=== PATIENT | female | born 2000 | race African-American/Black ===

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

== ENCOUNTER 2019-03-24 09:24 | Emergency (ER) | payer OTHER ==
[~2019-03-24] VITALS: Ht 172.7 cm; Wt 72.7 kg
[2019-03-24 09:46] VITALS: BP 122/81; TEMP 98.1
[2019-03-24] MEDS ORDERED: TAMIFLU 75MG75 MG PO (10:41)
[2019-03-24 10:59] VITALS: PULSE 98
== END 2019-03-24 10:59 | disposition home or self-care (01) ==
LOC: COL.ER 09:24
DX: J11.1 Influenza due to unidentified influenza virus with other respiratory manifestations (principal)

== ENCOUNTER 2019-05-12 09:25 | Emergency (ER) | payer OTHER ==
[~2019-05-12] VITALS: Ht 172.7 cm; Wt 79.5 kg
[2019-05-12 09:29] VITALS: BP 134/82; PULSE 84; TEMP 97.9
[2019-05-12 10:15] LABS: COLLECTION METHOD CLEAN CATCH
[2019-05-12 10:28] LABS: MUCOUS Present /lpf; PH 5 (5-8); URINE APPEARANCE Hazy; URINE BACTERIA Rare /hpf; URINE BILIRUBIN Negative (NEGATIVE); URINE BLOOD Negative (NEGATIVE); URINE COLOR Amber; URINE GLUCOSE Negative (NEGATIVE); URINE KETONE Negative (NEGATIVE); URINE LEUKOCYTE ESTERASE Trace (NEGATIVE); URINE NITRATE Negative (NEGATIVE); URINE PROTEIN(semi-quant) 1+ (NEGATIVE); URINE RBC 0-2 /hpf; URINE UROBILINOGEN Negative (NEGATIVE)
== END 2019-05-12 12:11 | disposition home or self-care (01) ==
LOC: COL.ER 09:25
PROVIDERS: Physician Assistant
DX: R10.2 Pelvic and perineal pain (principal)
CPT/HCPCS: J1885

== ENCOUNTER 2019-05-14 21:22 | Emergency (ER) | payer OTHER ==
[~2019-05-14] VITALS: Ht 172.7 cm; Wt 79.5 kg
[2019-05-14 21:38] VITALS: BP 142/80; TEMP 97.3
[2019-05-15 01:23] LABS: COLLECTION METHOD CLEAN CATCH
[2019-05-15 01:26] LABS: BASO # 0.1 (0.0-0.2); BASO % 0.5 % (0.0-2.0); EOS # 0.2 (0.0-0.7); EOS % 1.5 % (0-4.0); GRAN # 7.5 (1.4-6.5); GRAN % 70.1 % (42.2-75.2); HEMATOCRIT 41.3 % (35.0-45.0); LYMPH # 2.4 (1.2-3.4); LYMPH % 22.5 % (20.0-51.0); MEAN CELL VOLUME 91 fl (80.0-95.0); MEAN CORPUSCULAR HEMOGLOBIN 29 pg (26.0-32.0); MEAN CORPUSCULAR HGB CONC 32 g/dl (33.0-37.0); MEAN PLATELET VOLUME 11.1 fl (7.4-10.4); MONO # 0.6 (0.1-0.6); MONO % 5.1 % (1.7-9.3); PLATELET COUNT 237 K/mm3 (130-400); RED BLOOD COUNT 4.52 M/mm3 (4.10-5.30); REDCELL DISTRIBUTION WIDTH-CV 13.8 % (11.5-14.5)
[2019-05-15 01:30] LABS: MUCOUS Present /lpf; PH 7 (5-8); URINE APPEARANCE Clear; URINE BACTERIA None Seen /hpf; URINE BILIRUBIN Negative (NEGATIVE); URINE BLOOD Negative (NEGATIVE); URINE COLOR Yellow; URINE GLUCOSE Negative (NEGATIVE); URINE KETONE Negative (NEGATIVE); URINE LEUKOCYTE ESTERASE Negative (NEGATIVE); URINE NITRATE Negative (NEGATIVE); URINE PROTEIN(semi-quant) Negative (NEGATIVE); URINE RBC 0-2 /hpf
[2019-05-15 01:35] LABS: ALBUMIN 4.1 gm/dL (3.5-5.0); BILIRUBIN,TOTAL 0.3 mg/dL (0.0-1.0); CALCIUM 8.6 mg/dL (8.4-10.2); CREATININE, serum 0.72 (0.52-1.25); POTASSIUM 3.8 mmol/L (3.4-5.0); TOTAL PROTEIN 7.5 gm/dL (6.4-8.2)
[2019-05-15] MEDS ORDERED: NORCO 325 MG-51 TAB PO (02:55)
[2019-05-15 03:32] VITALS: PULSE 64
== END 2019-05-15 03:32 | disposition home or self-care (01) ==
LOC: COL.ER 21:22
PROVIDERS: Emergency Medicine
DX: N83.201 Unspecified ovarian cyst, right side (principal)
CPT/HCPCS: J7030; Q9967

== ENCOUNTER 2019-07-25 10:35 | Emergency (ER) | payer OTHER ==
[~2019-07-25] VITALS: Ht 172.7 cm; Wt 77.3 kg
[~2019-07-25 10:35] MED LIST changes: +NORCO 325 MG-51 TAB PO
[2019-07-25 10:54] VITALS: BP 146/82; PULSE 83; TEMP 98.8
[2019-07-25] MEDS ORDERED: NEXPLANON68 MG ID (10:56)
[2019-07-25] MEDS ORDERED: AMOXICILLIN 8751 TAB PO ×4 (11:20→13:44)
[2019-07-25] MEDS ORDERED: NORCO 325 MG-51 TAB PO ×4 (11:20→13:44)
== END 2019-07-25 11:45 | disposition home or self-care (01) ==
LOC: COL.ER 10:35
DX: K04.7 Periapical abscess without sinus (principal)

== ENCOUNTER 2021-01-16 18:28 | Emergency (ER) | payer OTHER ==
[~2021-01-16] VITALS: Ht 172.7 cm; Wt 79.5 kg
[~2021-01-16 18:28] MED LIST changes: +AMOXICILLIN 8751 TAB PO; +NEXPLANON68 MG ID; +ZOFRAN 4MG T4 MG/TAB PO
[2021-01-16 19:40] LABS: BASO # 0.1 K/mm3 (0.0-0.2); BASO % 0.4 % (0.0-2.0); EOS # 0.1 K/mm3 (0.0-0.7); EOS % 0.4 % (0-4.0); GRAN % 78.7 % (42.2-75.2); HEMATOCRIT 38.8 % (37.0-47.0); HEMOGLOBIN 12.2 g/dl (12.5-16.0); LYMPH # 2.1 K/mm3 (1.2-3.4); LYMPH % 13.6 % (20.0-51.0); MEAN CELL VOLUME 88 fl (80.0-100.0); MEAN CORPUSCULAR HEMOGLOBIN 28 pg (27.0-31.0); MEAN CORPUSCULAR HGB CONC 31 g/dl (33.0-37.0); MONO % 6.5 % (1.7-9.3); PLATELET COUNT 261 K/mm3 (130-400); REDCELL DISTRIBUTION WIDTH-CV 14.4 % (11.5-14.5)
[2021-01-16 19:56] LABS: ALBUMIN 3.8 gm/dL (3.5-5.0); BILIRUBIN,TOTAL 0.3 mg/dL (0.2-1.2); C-REACTIVE PROTEIN 7.23 mg/dL (0.00-0.50); CALCIUM 8.7 mg/dL (8.4-10.2); CREATININE, serum 0.9 mg/dL (0.57-1.11); POTASSIUM 3.7 mmol/L (3.5-4.5); TOTAL PROTEIN 7.3 gm/dL (6.2-8.1)
[2021-01-16 21:26] LABS: GLUCOSE,CSF 55 mg/dL (40-70)
[2021-01-16 22:04] LABS: MONOSCREEN NEGATIVE
[2021-01-16 22:11] LABS: CSF APPEARANCE CLEAR; CSF COLOR COLORLESS
[2021-01-16 22:12] LABS: CSF APPEARANCE CLEAR; CSF COLOR COLORLESS; CSF MONONUCLEAR 100 % (70-100); CSF POLYMORPHONUCLEAR 0 % (0-6); CSF RBC 1 /mm3 (0-0); CSF RBC 14 /mm3 (0-0)
[2021-01-16] MEDS ORDERED: OMNICEF 300MG300 MG PO (22:42)
[2021-01-16 22:49] LABS: COLLECTION METHOD CLEAN CATCH
[2021-01-16 22:55] VITALS: BP 129/67; PULSE 74; TEMP 97.9
[2021-01-16 22:55] LABS: MUCOUS Present /lpf; PH 7 (5-8); SQUAMOUS EPITHELIAL 0-2 /hpf; URINE APPEARANCE Clear; URINE BACTERIA None Seen /hpf; URINE BILIRUBIN Negative (NEGATIVE); URINE BLOOD Negative (NEGATIVE); URINE COLOR Yellow; URINE GLUCOSE Negative (NEGATIVE); URINE KETONE 1+ (NEGATIVE); URINE LEUKOCYTE ESTERASE Negative (NEGATIVE); URINE NITRATE Negative (NEGATIVE); URINE PROTEIN(semi-quant) Negative (NEGATIVE); URINE RBC 0-2 /hpf; URINE UROBILINOGEN Negative (NEGATIVE)
== END 2021-01-16 22:55 | disposition home or self-care (01) ==
LOC: COL.ER 18:28
PROVIDERS: Family Medicine
DX: R50.9 Fever, unspecified (principal); M54.2 Cervicalgia; Z20.822 Contact with and (suspected) exposure to COVID-19
CPT/HCPCS: J7120

== ENCOUNTER 2021-01-20 15:08 | Emergency (ER) | payer OTHER ==
[~2021-01-20] VITALS: Ht 172.7 cm; Wt 81.8 kg
[~2021-01-20 15:08] MED LIST changes: +OMNICEF 300MG300 MG PO
[2021-01-20 15:43] VITALS: TEMP 98.3
[2021-01-20 17:13] LABS: BASO # 0.1 K/mm3 (0.0-0.2); BASO % 0.5 % (0.0-2.0); EOS # 0.1 K/mm3 (0.0-0.7); EOS % 0.5 % (0-4.0); GRAN # 6.7 K/mm3 (1.4-6.5); HEMATOCRIT 40.7 % (37.0-47.0); HEMOGLOBIN 13.2 g/dl (12.5-16.0); LYMPH # 2.3 K/mm3 (1.2-3.4); LYMPH % 23.7 % (20.0-51.0); MEAN CELL VOLUME 86 fl (80.0-100.0); MEAN CORPUSCULAR HEMOGLOBIN 28 pg (27.0-31.0); MEAN CORPUSCULAR HGB CONC 32 g/dl (33.0-37.0); MEAN PLATELET VOLUME 10.6 fl (7.4-10.4); MONO # 0.5 K/mm3 (0.1-0.6); PLATELET COUNT 344 K/mm3 (130-400); RED BLOOD COUNT 4.75 M/mm3 (4.10-5.30); REDCELL DISTRIBUTION WIDTH-CV 14.1 % (11.5-14.5)
[2021-01-20] MEDS ORDERED: FIORICET 325 MG1 TA1 PO (18:07)
[2021-01-20 18:55] VITALS: BP 121/67; PULSE 61
== END 2021-01-20 18:55 | disposition home or self-care (01) ==
LOC: COL.ER 15:08
PROVIDERS: Physician Assistant
DX: G97.1 Other reaction to spinal and lumbar puncture (principal)
CPT/HCPCS: J1200; J1885; J2765; J7030

== ENCOUNTER 2021-07-26 22:51 | Emergency (ER) | payer OTHER ==
[~2021-07-26] VITALS: Ht 172.7 cm; Wt 80.9 kg
[~2021-07-26 22:51] MED LIST changes: +FIORICET 325 MG1 TA1 PO
[2021-07-26 23:04] VITALS: BP 125/89; TEMP 98
[2021-07-26] MEDS ORDERED: PEN-VEE K500 MG PO (23:36)
[2021-07-26 23:58] VITALS: PULSE 72
== END 2021-07-26 23:58 | disposition home or self-care (01) ==
LOC: COL.ER 22:51
DX: K04.7 Periapical abscess without sinus (principal)